=== PATIENT | male | born 1970 | race Caucasian/White ===

== ENCOUNTER → 2017-12-21 | Outpatient (REF) ==
[2017-12-21 17:07] LABS: THYROID STIMULATING HORMONE 0.706 uIU/mL (0.465-4.680)
== END ==
LOC: ZLAB.WCH 16:12
PROVIDERS: Nurse Practitioner Family
DX: Z01.89 Encounter for other specified special examinations (principal)

== ENCOUNTER → 2017-12-27 | Outpatient (REF) | LOC: COL.CARD 09:18 | DX: Z01.89 Encounter for other specified special examinations (principal) ==

== ENCOUNTER 2018-04-28 09:09 | Inpatient (IN) | payer BC ==
[~2018-04-28] VITALS: Ht 195.6 cm; Wt 121.0 kg
[2018-04-28 09:26] VITALS: BP 122/75; PULSE 69; TEMP 98.1
[2018-04-28 10:33] LABS: BASO % 0.5 % (0.0-2.0); EOS # 0.2 (0.0-0.7); EOS % 3.1 % (0-4.0); GRAN # 3.4 (1.4-6.5); GRAN % 58.3 % (42.2-75.2); HEMATOCRIT 43.2 % (42.0-52.0); HEMOGLOBIN 14.9 g/dl (13.5-18.0); LYMPH # 1.7 (1.2-3.4); LYMPH % 28.8 % (20.0-51.0); MEAN CELL VOLUME 91 fl (80.0-100.0); MEAN CORPUSCULAR HEMOGLOBIN 31 pg (27.0-31.0); MEAN CORPUSCULAR HGB CONC 35 g/dl (33.0-37.0); MEAN PLATELET VOLUME 10.7 fl (7.4-10.4); MONO # 0.5 (0.1-0.6); MONO % 9.1 % (1.7-9.3); PLATELET COUNT 194 K/mm3 (130-400); RED BLOOD COUNT 4.77 M/mm3 (4.20-5.60); REDCELL DISTRIBUTION WIDTH-CV 12.5 % (11.5-14.5)
[2018-04-28 10:40] LABS: INR 1.1 (0.8-3.0); PROTHROMBIN TIME 12.5 SECONDS (9.7-12.8)
[2018-04-28 10:41] LABS: ALBUMIN 4.1 gm/dL (3.5-5.0); BILIRUBIN,TOTAL 0.9 mg/dL (0.0-1.0); CALCIUM 9.5 mg/dL (8.4-10.2); CREATININE, serum 0.82 mg/dL (0.66-1.25); MAGNESIUM 1.9 mg/dL (1.6-2.3); POTASSIUM 4.4 mmol/L (3.4-5.0); TOTAL PROTEIN 7.2 gm/dL (6.4-8.2)
[2018-04-28] MEDS ORDERED: DILT 120 MG (11:59)
[2018-04-28 12:00] VITALS: BP 128/81; PULSE 60; TEMP 98.3
[2018-04-28] MEDS ORDERED: TAMBOCOR 1100 MG/TAB PO (12:00)
[2018-04-28 16:42] VITALS: BP 121/82; PULSE 56; TEMP 98.4
[2018-04-28 19:53] VITALS: BP 101/57; PULSE 59; TEMP 98.6
[2018-04-28 23:30] VITALS: BP 102/50; BP 118/65; PULSE 63; PULSE 77; TEMP 98.6; TEMP 98.7
[2018-04-29 03:57] VITALS: BP 115/56; PULSE 56; TEMP 98.6
[2018-04-29 08:05] VITALS: BP 103/57; PULSE 67; TEMP 98.4
[2018-04-29 12:40] VITALS: BP 111/66; PULSE 69; TEMP 98.3
[2018-04-29 16:20] VITALS: BP 109/59; PULSE 67; TEMP 98.6
[2018-04-29 19:17] VITALS: BP 102/67; PULSE 53; TEMP 98.6
[2018-04-29 23:24] VITALS: BP 110/75; PULSE 89; TEMP 98.5
[2018-04-30 04:27] VITALS: BP 108/52; PULSE 55; TEMP 98.6
[2018-04-30 08:40] VITALS: BP 105/72; PULSE 57; TEMP 97.6
[2018-04-30 11:46] VITALS: BP 108/74; PULSE 51; TEMP 98.2
[2018-04-30] MEDS ORDERED: ASPIRIN 32325 MG/TAB PO (11:49)
[2018-04-30] MEDS ORDERED: BETAPACE 120MG120 MG PO (11:49)
== END 2018-04-30 15:04 | disposition home or self-care (01) | DRG 310 ==
LOC: MEDICAL 09:09
PROVIDERS: Internal Medicine Cardiovascular Disease
DX: I48.92 Unspecified atrial flutter (principal); I48.91 Unspecified atrial fibrillation

== ENCOUNTER 2021-04-08 06:57 | Day surgery (SDC) | payer BC ==
[~2021-04-08] VITALS: Ht 195.6 cm; Wt 130.7 kg
[~2021-04-08 06:57] MED LIST: ASPIRIN 32325 MG/TAB PO; BETAPACE 120MG120 MG PO; DILT 120 MG; TAMBOCOR 1100 MG/TAB PO
[2021-04-08 08:05] VITALS: BP 124/78; PULSE 75; TEMP 98
[2021-04-08 09:15] VITALS: BP 118/72; PULSE 63
--- NOTE | 2021-04-08 09:15 | NUR ---
Patient returns to room 7 per cart from surgery accompanied by Britton SENA and Arabella RN. Patient is resting with eyes closed and offers no complaints of pain or nausea. Dressing clean and dry on the left foot with post op shoe in place. Toes on the left foot pink. IV fluids infusing and site is free of redness. Allowed to rest.
[2021-04-08 09:30] VITALS: BP 115/72; PULSE 58
--- NOTE | 2021-04-08 09:30 | NUR ---
Continues to rest without complaints of pain or nausea.
[2021-04-08 09:45] VITALS: BP 111/68; PULSE 58
--- NOTE | 2021-04-08 09:45 | NUR ---
Continues to rest without complaints.
[2021-04-08 10:00] VITALS: BP 110/69; PULSE 55
--- NOTE | 2021-04-08 10:00 | NUR ---
Resting without complaints. Left foot dressing remains clean and dry.
--- NOTE | 2021-04-08 10:28 | NUR ---
Awake and alert. Denies pain or nausea. Taking water and eating muffin.
[2021-04-08] MEDS ORDERED: NORCO 325 MG-51 TAB PO (10:46)
--- NOTE | 2021-04-08 11:00 | NUR ---
IV discontinued and site is free of redness or swelling. Patient dresses self.
--- NOTE | 2021-04-08 11:14 | NUR ---
Dismissal instructions given and voices understanding of these. Provided script for Martha. Denies nausea after eating muffin and continues to deny pain.
--- NOTE | 2021-04-08 11:31 | NUR ---
Patient dismissed to home driven by spouse and taken to the front door per wheelchair by this RN and assisted into vehicle with instructions in hand.
== END 2021-04-08 11:31 | disposition home or self-care (01) ==
LOC: SDCO 06:57
DX: M77.32 Calcaneal spur, left foot (principal); E66.9 Obesity, unspecified; Z68.34 Body mass index [BMI] 34.0-34.9, adult; I48.0 Paroxysmal atrial fibrillation; Z20.822 Contact with and (suspected) exposure to COVID-19
CPT/HCPCS: J0690; J1885; J2250; J2405; J2704; J3010; J3301; J7120